=== PATIENT | female | born 1985 | race African-American/Black ===

== ENCOUNTER 2022-07-13 14:35 | Emergency (ER) | payer OTHER, SELFPAY ==
[2022-07-13 14:46] VITALS: PULSE 91; RESP 16; TEMP 37; O2SAT 99
--- NOTE | 2022-07-13 15:26 | PC.NURSE ---
pt refusing Covid and Flu swabs
[2022-07-13 15:46] VITALS: BP 125/86; PULSE 78; RESP 18; O2SAT 100
[2022-07-13 15:47] LABS: Appearance Urine Clear (Clear); Bacteria Urine Rare /hpf; Bilirubin Urine Negative (Negative); Color Urine Yellow (Yellow); Glucose Urine UA Negative (Negative); Ketones Urine Trace mg/dL (Negative); Leukocyte Esterase Ur Negative LEU/UL (Negative); Nitrate Urine Negative (Negative); Non Pathogenic Casts 0-2; Protein Urine Negative (Negative); RBC Urine 0-2 /hpf (0-2); Specific Grav Ur 1.013 (1.001-1.035); Squamous Epithelial Cell Urine None seen /hpf (Few); WBC Urine 0-5 /hpf
--- NOTE | 2022-07-13 15:49 | ED.NAVMDI ---
HPI - Nausea/Vomiting/Diarrhea General Chief complaint: Nausea/Vomiting/Diarrhea Stated complaint: vomiting Time Seen by Provider: 07/13/22 14:55 History of Present Illness HPI Narrative: 36-year-old female reports to the ED for evaluation of rhinorrhea and nasal congestion x3 days. Patient states her symptoms started 3 days ago with a runny nose, which has since improved however now she is complaining of nasal congestion. Patient is also reporting green vaginal discharge that started 2 days ago with associated suprapubic tenderness, and foul-smelling urine. She reports having unprotected sexual intercourse. She also reports taking for pink antibiotics that she had leftover from a previous tooth infection starting Thursday morning. She is unsure the name of the antibiotic. Denies headache, vision changes, sore throat, cough, shortness of breath, chest pain, dysuria, urinary frequency or urgency. She denies headache, vision changes, sinus pressure, sore throat, fever, body aches, chills, n/v/d, vaginal bleeding or sores. Patient is requesting testing for gonorrhea, chlamydia, trichomonas, syphilis, HIV, hepatitis. Patient desires to be treated in the ED for GC/chlamydia and trichomoniasis Related Data Allergies Allergy/AdvReac Type Severity Reaction Status Date / Time No Known Allergies Allergy Verified 07/13/22 15:49 Review of Systems Review of Systems: CONSTITUTIONAL: Denies fever, chills EYES: Denies visual changes, redness, or discharge. ENT: Denies sore throat, or otalgia. CARDIOVASCULAR: Denies chest pain, palpitations, or edema. RESPIRATORY: Denies cough or dyspnea. GASTROINTESTINAL: Denies nausea, vomiting, or diarrhea. GENITOURINARY: Denies dysuria or hematuria. SKIN: Denies rash or itching. MUSCULOSKELETAL: Denies back pain, joint pain, or myalgia. NEUROLOGIC: Denies headache, numbness, dizziness, or weakness. PSYCHIATRIC: Denies anxiety or depression. Exam Narrative: GENERAL: Well-appearing, well-nourished, and in no acute distress. Patient is resting comfortably in the bed. HEAD: Normocephalic, atraumatic. EYES: PERRLA and EOMI. ENT: Nares clear, no rhinorrhea or epistaxis. Mucous membranes moist. Oropharynx without tonsillar hypertrophy exudate or other lesions. Bilateral TMs pearly schmidt nonbulging. Nasal mucosa without congestion. No tenderness over maxillary or frontal sinuses. NECK: Supple. No adenopathy or masses. No lymphadenopathy. CHEST: Clear to auscultation. No respiratory distress. No wheezes rales or rhonchi HEART: Regular rate and rhythm. No murmur heard. Normal peripheral pulses. ABDOMEN: Soft, nontender, nondistended, normal active bowel sounds. UROGYN: No lesions or rashes to external genitalia, vaginal canal, cervix. Mild white milky discharge present in vaginal canal. Cervical os closed. No CMT. No adnexal masses or tenderness appreciated. EXTREMITIES: Normal range of motion. No edema. SKIN: Warm, dry, no rash. NEURO: No focal deficits. Alert and oriented x3. PSYCH: Normal mood and affect. Course Vital Signs Vital signs: Vital Signs Temperature 98.6 F 07/13/22 14:46 Pulse Rate 91 07/13/22 14:46 Respiratory Rate 16 07/13/22 14:46 Pulse Oximetry 99 07/13/22 14:46 Temperature 98.6 F 07/13/22 14:46 Pulse Rate 64 07/13/22 17:52 Respiratory Rate 18 07/13/22 17:52 Blood Pressure 132/88 07/13/22 17:52 Pulse Oximetry 100 07/13/22 17:52 Oxygen Delivery Room Air 07/13/22 15:46 MDM - Nausea/Vomiting/Diarrhea MDM Narrative Medical decision making narrative: 36-year-old female reports to the ED for evaluation of rhinorrhea, nasal congestion, vaginal discharge. Exam consistent with viral URI. pelvic exam reveals white, milky discharge in vaginal canal. No CMT, abdominal pain, vaginal bleeding. Offered testing for syphilis, HIV, hepatitis when patient requested, however she later declined testing when the nurse entered the room to draw blood. Swapnil
[2022-07-13 15:55] LABS: Add Urine Microscopic? NO
--- NOTE | 2022-07-13 16:06 | PC.NURSE ---
Pelvic exam completed by JONEL Hernandez. Chaperoned by this RN
[2022-07-13] MEDS: DOXYCYCLINE HYCLATE 100 MG TABLET PO (17:44)
[2022-07-13] MEDS: cefTRIAXone 1 GM VIAL 0.5 GM IM (17:44)
[2022-07-13] MEDS: LIDOCAINE HCL 1% LOCAL INJ 10 ML VIAL (17:45)
[2022-07-13 17:52] VITALS: BP 132/88; PULSE 64; RESP 18; O2SAT 100
--- NOTE | 2022-07-13 17:54 | PC.NURSE ---
Pt refusing blood work at this time, would like to be discharged. JONEL adams.
[2022-07-13 18:24] VITALS: TEMP 36.4
== END 2022-07-13 18:24 | disposition home or self-care (01) ==
PROVIDERS: Emergency Provider Physician Assistant
DX: J06.9 Acute upper respiratory infection, unspecified (principal); Z11.3 Encounter for screening for infections with a predominantly sexual mode of transmission
CPT/HCPCS: 81003; 81025; 87070; 87491; 87591; 87808; 96372; 99283; A9270; J0696